=== PATIENT | male | born 1970 | race Caucasian/White ===

== ENCOUNTER 2017-07-26 18:11 | Inpatient (IN) | payer OTHER ==
[~2017-07-26] VITALS: Ht 182.9 cm; Wt 77.1 kg
[~2017-07-26 18:11] MED LIST: AZELASTINE137 MCG/0.; FLONASE16 GM; LIPITOR20 MG PO; PAXIL20 MG PO; SINGULAIR10 MG PO
[2017-07-30] MEDS ORDERED: GAS-X125 M1 PO (14:28)
[2017-07-30] MEDS ORDERED: RESTORA CAPSUL1 EACH PO (14:28)
== END 2017-07-30 14:59 | disposition home or self-care (01) | DRG 389 ==
LOC: ER 18:11 → SURH 07-27 14:19 → SEC-K 07-27 14:19 → SURH 07-27 16:06
PROC: 3E0F7GC Introduction of Other Therapeutic Substance into Respiratory Tract, Via Natural or Artificial Opening (ICD-10-PCS; principal; 2017-07-28)
DX: K56.690 Other partial intestinal obstruction (principal); C18.0 Malignant neoplasm of cecum; J44.9 Chronic obstructive pulmonary disease, unspecified; J45.20 Mild intermittent asthma, uncomplicated; E78.00 Pure hypercholesterolemia, unspecified; D50.0 Iron deficiency anemia secondary to blood loss (chronic)

== ENCOUNTER 2018-07-19 08:57 | Day surgery (SDC) | payer OTHER ==
[~2018-07-19 08:57] MED LIST changes: +GAS-X125 M1 PO; +RESTORA CAPSUL1 EACH PO
== END 2018-07-19 13:42 | disposition home or self-care (01) ==
LOC: AMB-ENDOS 08:57
DX: K64.1 Second degree hemorrhoids (principal)